=== PATIENT | female | born 1970 | race Caucasian/White ===

== ENCOUNTER 2021-04-02 06:20 | Observation (INO) ==
[2021-04-02] MEDS ORDERED: 0.9 % Sodium Chloride 1,000 ML IVC ONE (07:09)
[2021-04-02 08:24] LABS: Hematocrit 37.1 % (35.3-44.9); Hemoglobin 12.5 g/dL (11.5-15.4); Mean Corpuscular HGB Conc 33.7 g/dL (31.6-35.5); Mean Corpuscular Hemoglobin 29.1 pg (28.0-33.3); Mean Corpuscular Volume 86.5 fL (83.0-100.0); Mean Platelet Volume 9.1 fL (9.4-12.4); Platelet Count 308 K/mcL (140-400); Red Blood Count 4.29 M/mcL (3.82-4.97); White Blood Count 13.1 K/mcL (4.3-11.1)
[2021-04-02 08:38] LABS: Lymphocytes # 4.7 K/mcL (0.6-4.6); Neutrophils # 3.4 K/mcL (1.6-8.9); Platelet Estimate Normal (Normal)
[2021-04-02 08:40] LABS: BUN/Creatinine Ratio 25 (6-26); Blood Urea Nitrogen 15 mg/dL (6-20); Carbon Dioxide 21 mEq/L (23-29); Chloride 112 mEq/L (98-107); Glucose 111 mg/dL (70-105); Osmolality,Calculated 292 (280-300); Potassium 3.4 mEq/L (3.5-5.1); Sodium 140 mEq/L (136-145); eGFR For African Americans > 60 (> 60); eGFR For Non-African Americans > 60 (> 60)
[2021-04-02] MEDS ORDERED: Naloxone 0.4 MG/ML INJ IVP PRN (09:10)
[2021-04-02] MEDS ORDERED: Ondansetron 4 MG/2 ML VIAL IVP PRN (09:10)
[2021-04-02] MEDS ORDERED: *HR* Dextrose 50 % in Water (Vial) 50 ML VIAL IVP PRN (09:13)
[2021-04-02] MEDS ORDERED: Dextrose Gel 15 GM/37.5 ML TUBE PO PRN ×2 (09:13)
[2021-04-02] MEDS ORDERED: D5% in Water 1,000 ML IVC PRN (09:13)
[2021-04-02 09:59] LABS: BUN/Creatinine Ratio 25 (6-26); Blood Urea Nitrogen 14 mg/dL (6-20); Calcium 8.3 mg/dL (8.6-10.3); Carbon Dioxide 19 mEq/L (23-29); Chloride 114 mEq/L (98-107); Glucose 102 mg/dL (70-105); Osmolality,Calculated 291 (280-300); Potassium 3.3 mEq/L (3.5-5.1); Sodium 140 mEq/L (136-145); eGFR For African Americans > 60 (> 60); eGFR For Non-African Americans > 60 (> 60)
[2021-04-02] MEDS: Ringers Solution, Lactated 1,000 ML IVC SCH (11:08)
[2021-04-02] MEDS: Insulin LISPRO 300 UNITS/3 ML VIAL SUBQ SCH ×2 (12:36→16:40)
[2021-04-02] MEDS: Gabapentin 300 MG CAPSULE PO SCH ×2 (15:37→20:19)
[2021-04-02] MEDS: *HR* Heparin 5,000 UNIT/ML VIAL SQ SCH (17:52)
[2021-04-02] MEDS: Ibuprofen 600 MG TABLET PO PRN (18:20)
[2021-04-02] MEDS: Acetaminophen 325 MG TABLET PO PRN (20:19)
[2021-04-03] MEDS: Ringers Solution, Lactated 1,000 ML IVC SCH (00:06)
[2021-04-03 03:04] VITALS: PULSE 57
[2021-04-03] MEDS: Ibuprofen 600 MG TABLET PO PRN (03:25)
[2021-04-03 03:33] LABS: Basophils % 0.1 %; Eosinophils # 3.7 K/mcL (0.0-0.6); Eosinophils % 30.7 %; Immature Granulocytes % 0.3 % (0-4); Lymphocytes # 3.8 K/mcL (0.6-4.6); Lymphocytes % 31.3 %; Mean Corpuscular HGB Conc 34.3 g/dL (31.6-35.5); Mean Corpuscular Hemoglobin 29.1 pg (28.0-33.3); Mean Corpuscular Volume 84.7 fL (83.0-100.0); Mean Platelet Volume 8.9 fL (9.4-12.4); Monocytes # 0.4 K/mcL (0.0-1.3); Monocytes % 3.1 %; Platelet Count 259 K/mcL (140-400); Red Blood Count 3.54 M/mcL (3.82-4.97); Red Cell Distribution Width 14.8 % (11.5-14.5); Segmented Neutrophils % 34.5 %
[2021-04-03 03:38] LABS: Hemoglobin 10.3 g/dL (11.5-15.4); Neutrophils # 4.1 K/mcL (1.6-8.9)
[2021-04-03 03:43] LABS: Magnesium 1.6 mg/dL (1.6-2.6); Phosphorous 3.4 mg/dL (2.7-4.5)
[2021-04-03 04:31] LABS: Platelet Estimate Normal (Normal)
[2021-04-03] MEDS: *HR* Heparin 5,000 UNIT/ML VIAL SQ SCH (05:06)
[2021-04-03 07:14] VITALS: BP 117/66; TEMP 97.9; O2SAT 97
[2021-04-03] MEDS: Insulin LISPRO 300 UNITS/3 ML VIAL SUBQ SCH (07:25)
[2021-04-03] MEDS ORDERED: Loratadine 10 MG TABLET PO SCH (09:00)
[2021-04-03] MEDS ORDERED: Lactobacillus 1 EACH CAP.SPRINK PO SCH (09:00)
[2021-04-03] MEDS: Gabapentin 300 MG CAPSULE PO SCH (09:25)
[2021-04-03] MEDS: Acetaminophen 325 MG TABLET PO PRN (09:34)
[2021-04-03 10:14] LABS: Magnesium 1.7 mg/dL (1.6-2.6)
[2021-04-03 11:22] LABS: BUN/Creatinine Ratio 15 (6-26); Blood Urea Nitrogen 8 mg/dL (6-20); Calcium 8.6 mg/dL (8.6-10.3); Carbon Dioxide 21 mEq/L (23-29); Chloride 111 mEq/L (98-107); Glucose 138 mg/dL (70-105); Osmolality,Calculated 291 (280-300); Potassium 3.2 mEq/L (3.5-5.1); Sodium 140 mEq/L (136-145); eGFR For African Americans > 60 (> 60); eGFR For Non-African Americans > 60 (> 60)
== END 2021-04-03 12:28 | disposition home or self-care (01) ==
LOC: EMEROOARM 06:20 → 3ANU 06:20
PROVIDERS: ADMIT Internal Medicine; ATTEND Internal Medicine